=== PATIENT | male | born 1960 | race Caucasian/White ===

== ENCOUNTER → 2016-12-14 | Outpatient (CLI) | payer OTHER | END | disposition home or self-care (01) | LOC: C.LABPBG 13:09 | PROVIDERS: ATTEND Nurse Practitioner Adult Health | DX: N43.40 Spermatocele of epididymis, unspecified (principal) ==

== ENCOUNTER → 2016-12-18 | Outpatient (CLI) | payer OTHER ==
--- NOTE | 2016-12-18 09:44 | DIAGNOSTIC IMAGING REPORT ---
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 FINDINGS: The right testis measures 46 x 25 x 31 mm. The left testis measures 45 x 26 x 29 mm. No intratesticular masses are visualized. There is a large left-sided hydrocele with estimated volume of 160 cc. There is a small right-sided hydrocele. There is a 4 mm left-sided scrotolith. There is no evidence of testicular torsion. There are small bilateral epididymal cysts. There are small echogenic foci within the periphery/tunica of the left testis, likely representing calcifications. IMPRESSION: 1. Large left-sided hydrocele 2. No evidence of testicular torsion. Electronically signed by: Booker Hernandez M.D. 12/18/2016 9:43 AM Dictated Date/Time: 12/18/2016 9:39 AM
== END | disposition home or self-care (01) ==
LOC: C.ULTR 09:08
PROVIDERS: ATTEND Nurse Practitioner Adult Health
DX: N43.40 Spermatocele of epididymis, unspecified (principal); N43.3 Hydrocele, unspecified

== ENCOUNTER → 2017-02-15 | Outpatient (CLI) | payer BC, OTHER ==
[~2017-02-15] MED LIST: HYDR-5688 PO; MULT-610 PO
== END | disposition home or self-care (01) ==
LOC: C.PATHSPEC 17:41
PROVIDERS: ATTEND Urology
DX: R97.20 Elevated prostate specific antigen [PSA] (principal)

== ENCOUNTER → 2017-09-07 | Day surgery (SDC) | payer BC, OTHER ==
[2017-08-24 08:04] VITALS: BMI 29.0
--- NOTE | 2017-08-24 08:39 | PAT Medication Instructions ---
Service Date Aug 24, 2017. Current Home Medication List Multiple Vitamins W/ Minerals (Centrum Adults), 1 TAB PO QAM Medication Instructions For Your Scheduled Surgery - Hold the following medications the morning of surgery: Multiple Vitamins W/ Minerals (Centrum Adults), 1 TAB PO QAM If you have any questions please call us at [phone] or [phone] or [phone]
--- NOTE | 2017-08-24 09:23 | DIAGNOSTIC IMAGING REPORT ---
TWO VIEW CHEST CLINICAL HISTORY: Preoperative examination. FINDINGS: PA and lateral chest radiographs are obtained. No prior studies are available for comparison at the time of dictation. The cardiomediastinal silhouette is unremarkable. The lungs and pleural spaces are clear. There is no pneumothorax. The bony thorax appears intact. IMPRESSION: No active disease in the chest. Electronically signed by: Leonardo Hunt M.D. 08/24/2017 9:22 AM Dictated Date/Time: 08/24/2017 9:21 AM
[2017-08-24 09:53] LABS: BASO % 0.2 %; BASO ABS # 0.01 K/uL (0-0.2); COMPLETE YES; EOS % 1.3 %; HEMATOCRIT 44.4 % (42-52); IG% 0.2 %; LYMPH % 32.1 %; LYMPH ABS # 1.54 K/uL (1.2-3.4); MEAN CELL VOLUME 85.4 fL (80-100); MEAN CORPUSCULAR HEMOGLOBIN 29.6 pg (25-34); MEAN CORPUSCULAR HGB CONC 34.7 g/dl (32-36); MEAN PLATELET VOLUME 9.1 fL (7.4-10.4); MONO % 8.8 %; NEUT % 57.4 %; PLATELET COUNT 229 K/uL (130-400)
[2017-08-24 10:09] LABS: MANUAL MICROSCOPIC REQUIRED? NO; REVIEW REQ? NO; URINE APPEARANCE CLEAR (CLEAR); URINE BILIRUBIN NEG (NEG); URINE COLOR YELLOW; URINE NITRITE NEG (NEG); URINE PH 6.5 (4.5-7.5); URINE SPECIFIC GRAVITY 1.013 (1.000-1.030); UROBILINOGEN NEG (NEG)
[2017-08-24 11:15] LABS: BUN/CREATININE RATIO 16.9 (10-20); CALCIUM 9.6 mg/dl (8.5-10.1); CREATININE 0.97 mg/dl (0.60-1.40); POTASSIUM 4.7 mmol/L (3.5-5.1)
[~2017-09-07] VITALS: Ht 175.3 cm; Wt 89.0 kg
[~2017-09-07] MED LIST changes: +ACETAMINOPHEN 325 MG TAB PO PRN; +ATROPINE SULFATE 0.1 MG/ML 5ML SYR IV PRN; +BACITRACIN OINT 15 GM TUBE ONE; +BUPIVACAINE 0.5 % 5 MG/1 ML MPF 30ML VIAL ONE; +CEFAZOLIN 2000MG IV PUSH 10 ML IV SCH; +DEXAMETHASONE SOD INJ 4 MG/ML VIAL ONE; +EpHEDrine SULFATE INJ 50 MG/ML AMP IV PRN; +EpHEDrine SULFATE INJ 50 MG/ML AMP ONE; +FENTANYL CITRATE INJ 50 MCG/1 ML 2 ML VIAL IV PRN; +FENTANYL CITRATE INJ 50 MCG/1 ML 2 ML VIAL ONE; +GLYCOPYRROLATE INJ 0.2 MG/ML VIAL ONE; +HYDROmorphone INJ 1 MG/ML SYR IV PRN; +LACTATED RINGER'S 1000ML 1,000 ML IV SCH; +LIDOCAINE HCL 2% 2 ML VIAL (20MG/ML) ONE; +MIDAZOLAM HCL 1 MG/ML 2ML VIAL ONE; +NEOSTIGMINE METHYLSULFATE 5 MG/5 ML SYR ONE; +ONDANSETRON INJ 2 MG/ML 2 ML VIAL IV PRN; +ONDANSETRON INJ 2 MG/ML 2 ML VIAL ONE; +OXYCODONE/ACETAMINOPHEN 5-325 TAB PO PRN; +PHENYLEPHRINE HCL INJ 10 MG/ML VIAL ONE; +PROMETHAZINE HCL INJ 12.5 MG in SODIUM CHLORIDE 0.9% 50ML 50 ML IV PRN; +PROPOFOL IV EMULSION 10 MG/ML 20 ML VIAL IV ONE; +SODIUM CHLORIDE 0.9% 1000ML 1,000 ML IV SCH; +SODIUM CHLORIDE 0.9% INJ 10 ML VIAL ONE; +SUCCINYLCHOLINE CHLORIDE 20 MG/ML 10 ML VIAL IV ONE
[2017-09-07 05:51] VITALS: BP 165/80; PULSE 58; TEMP 36.7; O2SAT 97; Ht 175.3 cm; Wt 89.0 kg
--- NOTE | 2017-09-07 07:10 | History & Physical Bridge Note ---
H&P Re-Evaluation Bridge Note: I have examined the patient, reviewed the History & Physical and in the interval since the performance of the History & Physical I have noted the following changes of clinical significance: No changes noted
--- NOTE | 2017-09-07 08:36 | Discharge Instructions ---
Discharge Instructions Date of Service Sep 07, 2017. Admission Reason for Admission: Left Hydrocele Discharge Discharge Diagnosis / Problem: left hydrocele Discharge Goals Goal(s): Decrease discomfort, Improve function, Increase independence, Improve disease control Activity Recommendations Activity Limitations: per Instructions/Follow-up section Lifting Limitations: no more than 25 pounds Exercise/Sports Limitations: none May Resume Sexual Activity: after follow-up appointment Shower/Bathe: no limitations Driving or Machine Use: resume 1 day after discharge (as long as you are off of pain medications and feel that you can control your vehicle) . Instructions / Follow-Up Instructions / Follow-Up Please come to Dr. Schroeder's [place] office on to have your drain removed. Discharge Diet Recommended Diet: Regular Diet Procedures Procedures Performed: Left Scrotal Hydrocelectomy Pending Studies Studies pending at discharge: no Medical Emergencies . Who to Call and When: Medical Emergencies: If at any time you feel your situation is an emergency, please call 911 immediately. . Non-Emergent Contact Non-Emergency issues call your: Urologist Call Non-Emergent contact if: you have a fever, temperature is above 101.5, your pain is not controlled, your pain is worsening . . "Provider Documentation" section prepared by Yahir Oreilly. . VTE Core Measure Inpt VTE Proph given/why not?: Treatment not indicated [place] Drug Monitoring Program Search Results: patient reviewed within database, no issues identified
--- NOTE | 2017-09-07 08:52 | [facility] Operative Report ---
Operative Report Operative Date Sep 07, 2017. Pre-Operative Diagnosis Hydrocele, left Post-Operative Diagnosis Hydrocele, left Procedure(s) Performed Left Scrotal Hydrocelectomy Surgeon Dr. Jose Schroeder [employer] Member Surgeon(s) None Estimated Blood Loss 5 mL Findings Large, simple left hydrocele Specimens Permanent specimens A: Left hydrocele Drains [place] Anesthesia Gen. Complication(s) None Disposition Recovery Room / PACU Indications Large left hydrocele Description of Procedure The patient was identified in the preoperative holding area, consents were reviewed and completed. Patient was transported to the operating suite, upon arrival he received appropriate preoperative antibiotics in the form of Ancef. He was placed in supine position and general anesthesia was induced. He is noted to have a large left hydrocele. I may raphae incision for approximately 5 cm and carried this through the superficial tissues until exposed tunical vaginalis and underlying fluid. I then delivered this hydrocele through the scrotal incision and further skeletonized the hydrocele. I then opened the hydrocele and drained approximately 250 mL of fluid. I inspected the internal aspect of the hydrocele and saw no abnormalities. I incised the hydrocele sac longitudinally and then excised the redundant aspects on the lateral portions of the hydrocele sac. The cut edge of the tunical vaginalis was oversewn with a 2-0 running Vicryl suture. I then obtained meticulous hemostasis from the inner aspects of the scrotal wall. A GENOVEVA drain was inserted and brought through a separate incision in the dependent portion of the scrotum. Sutured this in place with a chromic stitch. Dartos fascia was reapproximated with a 2-0 chromic. Skin was closed with vertical mattress 3-0 chromic's. A cord block was placed with half percent Marcaine. Bacitracin was placed over the incision as were fluffs and the scrotal support. He was extubated and taken to the PACU in stable condition. Adrucil sac was sent to pathology for routine evaluation. I attest to the content of the Intraoperative Record and any orders documented therein. Any exceptions are noted below.
--- NOTE | 2017-09-07 09:02 | Anesthesiology Progress Note ---
Anesthesia Post Op Note Date & Time Sep 07, 2017 at 09:02 Vital Signs Pain Intensity: 0 Vital Signs Past 12 Hours Date Time Temp Pulse Resp B/P (MAP) Pulse Ox O2 Delivery O2 Flow Rate FiO2 09/07/17 08:55 62 16 144/79 98 Room Air 09/07/17 08:45 63 16 160/72 100 Oxymask 10 09/07/17 08:35 59 16 151/86 100 Oxymask 10 09/07/17 08:29 36.3 60 16 151/84 100 Oxymask 10 09/07/17 05:51 36.7 58 22 165/80 (108) 97 Room Air Notes Mental Status: alert / awake / arousable, participated in evaluation Pt Amnestic to Procedure: Yes Nausea / Vomiting: adequately controlled Pain: adequately controlled Airway Patency, RR, SpO2: stable & adequate BP & HR: stable & adequate Hydration State: stable & adequate Anesthetic Complications: no major complications apparent Awake, doing well. VSS. Ready for d/c from PACU
[2017-09-07 09:15] VITALS: BP 150/70; PULSE 58; TEMP 36.7; O2SAT 99
[2017-09-07 09:43] VITALS: BP 154/74; PULSE 58; O2SAT 99
== END | disposition home or self-care (01) ==
LOC: C.ACU 05:25
PROVIDERS: ATTEND Urology
DX: N43.3 Hydrocele, unspecified (principal); N43.40 Spermatocele of epididymis, unspecified; I10 Essential (primary) hypertension; Z68.29 Body mass index [BMI] 29.0-29.9, adult; F17.220 Nicotine dependence, chewing tobacco, uncomplicated; Z80.9 Family history of malignant neoplasm, unspecified; Z83.3 Family history of diabetes mellitus; Z82.49 Family history of ischemic heart disease and other diseases of the circulatory system